=== PATIENT | male | born 1980 | race Two or more races ===

== ENCOUNTER 2022-01-26 16:43 | Emergency (ER) | payer MEDICAID, OTHER ==
[~2022-01-26] VITALS: Ht 180.3 cm; Wt 108.9 kg
[2022-01-26 17:15] VITALS: BP 152/99
[2022-01-26] MEDS ORDERED: IBUP800T27 PO (17:19)
[2022-01-26] MEDS ORDERED: PRED20TA2 PO (17:19)
== END 2022-01-26 17:32 | disposition home or self-care (01) ==
LOC: ER 16:43
DX: M54.32 Sciatica, left side (principal); M79.662 Pain in left lower leg
CPT/HCPCS: 93971

== ENCOUNTER 2022-10-25 08:57 | Inpatient (IN) | payer MEDICAID ==
[~2022-10-25] VITALS: Ht 185.4 cm; Wt 103.6 kg
[~2022-10-25 08:57] MED LIST: IBUP800T27 PO; PRED20TA2 PO
[2022-10-25] MEDS ORDERED: SODIUM CHLORIDE 0.9% 500 ML IV ONE (09:30)
[2022-10-25] MEDS ORDERED: SODIUM CHLORIDE 0.9% 1,000 ML IVB ONE (09:30)
[2022-10-25] MEDS ORDERED: SODIUM CHLORIDE 0.9% 1,000 ML IV ONE (09:30)
[2022-10-25] MEDS ORDERED: dilTIAZem 25 MG/5 ML VIAL IV ONE (09:30)
[2022-10-25 09:32] LABS: INR 0.92 (0.9-1.15); Partial Thromboplastin Time 26.1 sec (24.6-33.4)
[2022-10-25 09:45] LABS: Basophils # (auto) 0.1 10 ^3/uL (0-0.2); Eosinophils # (auto) 0 10 ^3/uL (0-0.8); Eosinophils % (auto) 0.3 % (0.0-7.0); Lymphocytes # (auto) 3.4 10 ^3/uL (0.4-5.4); Mean Corpuscular Hemoglobin 29.8 pg (28.0-32.0)
[2022-10-25 09:48] LABS: Basophils % (auto) 0.8 % (0.0-2.0); Hematocrit 51.4 % (41.0-53.0); Hemoglobin 17.9 g/dL (13.5-17.5); Lymphocytes % (auto) 29.5 % (10.0-50.0); Mean Corpuscular Hgb Conc. 34.9 g/dL (32.0-36.0); Mean Corpuscular Volume 85.5 fL (80.0-100.0); Monocytes # (auto) 0.6 10 ^3/uL (0-1.3); Monocytes % (auto) 5.6 % (0.0-12.0); Neutrophils # (auto) 7.4 10 ^3/uL (1.6-8.6); Neutrophils % (auto) 63.8 % (37.0-80.0); Red Blood Cells 6.01 10^6/uL (4.5-5.90); Red Cell Distribution Width 12.9 % (11.8-14.3); White Blood Cell 11.6 10^3/uL (4.4-10.8)
[2022-10-25 10:07] LABS: Nucleated Red Blood Cells % 0.1 %
[2022-10-25] MEDS ORDERED: ADENOSINE 6 MG/2 ML INJ IV ONE (10:30)
[2022-10-25] MEDS ORDERED: ACETAMINOPHEN 500 MG TAB PO ONE (10:30)
[2022-10-25 11:00] LABS: Urine Bacteria NONE SEEN /hpf (None Seen); Urine Blood Negative /uL (Negative); Urine WBC <1 /hpf (0 - 3)
[2022-10-25] MEDS ORDERED: AMIODARONE HCL 150 MG in D5W 5% 100 ML IV ONE (11:00)
[2022-10-25] MEDS ORDERED: AMIODARONE 450mg/250ml AE 250 ML IV SCH (11:15)
[2022-10-25 17:00] LABS: Anion Gap 12 (5-15); Carbon Dioxide 23 mmol/L (21-32); Chloride 97 mmol/L (98-107); Potassium 4.5 mmol/L (3.5-5.1); Sodium 132 mmol/L (136-145)
[2022-10-25 17:01] LABS: Alanine Aminotransferase 30 U/L (16-61); Albumin 4.2 g/dL (3.4-5.0); Alkaline Phosphatase 167 U/L (45-117); Aspartate Aminotransferase 6 U/L (15-37); BUN/Creatinine Ratio 16.4; Bilirubin, Total 0.8 mg/dL (0.2-1.0); Blood Urea Nitrogen 20 mg/dL (7-18); Calcium 9.6 mg/dL (8.5-10.1); GFR African American 84 mL/min; GFR Non-African American 69 mL/min; Total Protein 7.9 g/dL (6.4-8.2)
[2022-10-25 17:03] LABS: Glucose 584 mg/dL (74-106)
[2022-10-25] MEDS ORDERED: DEXTROSE (50%) 50ML SYRG IV PRN (17:15)
[2022-10-25] MEDS: dilTIAZem 125mg/125ml BAG KIT 100 ML IV SCH (17:35)
[2022-10-25] MEDS: AMIODARONE 450mg/250ml AE 250 ML IV SCH ×2 (17:35→21:08)
[2022-10-25] MEDS ORDERED: MORPHINE SULFATE INJ 2 MG/ml SYRG IV PRN (17:45)
[2022-10-25] MEDS ORDERED: NITROGLYCERIN 0.4 MG SL TAB SL PRN (17:45)
[2022-10-25] MEDS: ACCU-CHEK COMFORT CURVE STRIP VI SCH ×2 (18:00→22:31)
[2022-10-25] MEDS: InsuLIN REG 1unit/0.01ml Soln (100units/ml) SC SCH ×2 (18:00→22:32)
[2022-10-25 19:16] LABS: Alcohol, Urine < 3.0 mg/dL (0-10); Amphetamine Screen, Urine NEGATIVE (NEGATIVE); Barbiturate Scree,Urine NEGATIVE (NEGATIVE); Benzodiazephine Screen, Urine NEGATIVE (NEGATIVE); Cannabinoid Screen, Urine NEGATIVE (NEGATIVE); Cocaine Screen, Urine NEGATIVE (NEGATIVE); Opiate Scree,Urine NEGATIVE (NEGATIVE); Phencyclidine Screen, Urine NEGATIVE (NEGATIVE)
[2022-10-25] MEDS ORDERED: ACCU-CHEK COMFORT CURVE STRIP VI SCH (20:00)
[2022-10-25] MEDS ORDERED: InsuLIN REG 1unit/0.01ml Soln (100units/ml) SC SCH (20:00)
[2022-10-25] MEDS ORDERED: ATORVASTATIN 20 MG TAB PO SCH (22:00)
[2022-10-26] MEDS: dilTIAZem 125mg/125ml BAG KIT 100 ML IV SCH (05:20)
[2022-10-26 06:02] LABS: Basophils # (auto) 0.1 10 ^3/uL (0-0.2); Basophils % (auto) 0.5 % (0.0-2.0); Eosinophils # (auto) 0.1 10 ^3/uL (0-0.8); Eosinophils % (auto) 0.5 % (0.0-7.0); Hematocrit 43.4 % (41.0-53.0); Hemoglobin 15.7 g/dL (13.5-17.5); Lymphocytes # (auto) 2.8 10 ^3/uL (0.4-5.4); Lymphocytes % (auto) 27.4 % (10.0-50.0); Mean Corpuscular Hemoglobin 29.9 pg (28.0-32.0); Mean Corpuscular Hgb Conc. 36.1 g/dL (32.0-36.0); Monocytes # (auto) 0.6 10 ^3/uL (0-1.3); Monocytes % (auto) 5.4 % (0.0-12.0); Neutrophils # (auto) 6.8 10 ^3/uL (1.6-8.6); Neutrophils % (auto) 66.2 % (37.0-80.0); Red Blood Cells 5.23 10^6/uL (4.5-5.90); Red Cell Distribution Width 12.7 % (11.8-14.3); White Blood Cell 10.3 10^3/uL (4.4-10.8)
[2022-10-26 06:15] LABS: Albumin 3.4 g/dL (3.4-5.0); Calcium 8.1 mg/dL (8.5-10.1); Potassium 3.7 mmol/L (3.5-5.1)
[2022-10-26 06:19] LABS: BUN/Creatinine Ratio 31.3; Bilirubin, Total 0.8 mg/dL (0.2-1.0); Total Protein 6.5 g/dL (6.4-8.2)
[2022-10-26] MEDS: ACCU-CHEK COMFORT CURVE STRIP VI SCH ×3 (06:46→18:25)
[2022-10-26] MEDS: InsuLIN REG 1unit/0.01ml Soln (100units/ml) SC SCH ×3 (06:49→18:41)
[2022-10-26] MEDS ORDERED: DIGOXIN (250MCG/ML) 2 ML AMPULE IV ONE (09:30)
[2022-10-26] MEDS ORDERED: POTASSIUM CHL 20 Meq TABLET PO ONE (09:30)
[2022-10-26] MEDS ORDERED: dilTIAZem HCL 180MG ER CAP PO SCH (10:00)
[2022-10-26] MEDS: FUROSEMIDE 40 MG/4 ML VIAL IV SCH (10:00)
[2022-10-26] MEDS: LISINOPRIL 5 MG TAB PO SCH (10:00)
[2022-10-26] MEDS: ASPirin 81 mg TAB PO SCH (10:10)
[2022-10-26] MEDS: dilTIAZem HCL 180MG ER CAP PO SCH (10:12)
[2022-10-26] MEDS: ENOXAPARIN SOD 40 MG/0.4 ML SYRINGE SC SCH (10:15)
[2022-10-26] MEDS: AMIODARONE 450mg/250ml AE 250 ML IV SCH (13:30)
[2022-10-26] MEDS ORDERED: AMIODARONE HCL 200 MG TAB PO ONE (16:30)
[2022-10-26 19:34] VITALS: BP 118/74
[2022-10-26 20:00] VITALS: BP 124/79
[2022-10-26 22:00] VITALS: BP 120/63
[2022-10-27] VITALS (7 sets, daily range): BP systolic 108–126; BP diastolic 63–85
[2022-10-27] MEDS: AMIODARONE HCL 200 MG TAB PO SCH ×3 (00:29→21:56)
[2022-10-27] MEDS: ATORVASTATIN 20 MG TAB PO SCH ×2 (00:30→21:56)
[2022-10-27] MEDS: ACCU-CHEK COMFORT CURVE STRIP VI SCH ×5 (00:39→21:50)
[2022-10-27] MEDS: InsuLIN REG 1unit/0.01ml Soln (100units/ml) SC SCH ×5 (00:43→21:52)
[2022-10-27] MEDS: ACETAMINOPHEN 325 MG TAB PO PRN ×2 (00:46→21:55)
[2022-10-27] MEDS: dilTIAZem HCL 180MG ER CAP PO SCH (08:59)
[2022-10-27] MEDS: ASPirin 81 mg TAB PO SCH (08:59)
[2022-10-27] MEDS: FUROSEMIDE 40 MG/4 ML VIAL IV SCH (09:00)
[2022-10-27] MEDS: ENOXAPARIN SOD 40 MG/0.4 ML SYRINGE SC SCH (09:01)
[2022-10-27] MEDS: dilTIAZem 125mg/125ml BAG KIT 100 ML IV SCH (09:01)
[2022-10-27] MEDS: LISINOPRIL 5 MG TAB PO SCH (09:01)
[2022-10-27] MEDS ORDERED: INSULIN LANTUS (GLARGINE) 1 /0.01ml (100units/ml) SC SCH (22:00)
[2022-10-28 05:14] VITALS: BP 106/66
[2022-10-28] MEDS: ACCU-CHEK COMFORT CURVE STRIP VI SCH ×3 (06:55→17:21)
[2022-10-28] MEDS: InsuLIN REG 1unit/0.01ml Soln (100units/ml) SC SCH ×3 (06:56→17:34)
[2022-10-28 08:00] VITALS: BP 133/87
[2022-10-28] MEDS: ASPirin 81 mg TAB PO SCH (08:53)
[2022-10-28] MEDS: AMIODARONE HCL 200 MG TAB PO SCH (08:53)
[2022-10-28] MEDS: LISINOPRIL 5 MG TAB PO SCH (08:53)
[2022-10-28] MEDS: dilTIAZem HCL 180MG ER CAP PO SCH (08:54)
[2022-10-28] MEDS: ENOXAPARIN SOD 40 MG/0.4 ML SYRINGE SC SCH (08:55)
[2022-10-28] MEDS: FUROSEMIDE 40 MG/4 ML VIAL IV SCH (08:55)
[2022-10-28 09:18] VITALS: BP_SYST 133; BP_DIAS 73; BP_DIAS 87
[2022-10-28 12:55] VITALS: BP 114/76
[2022-10-28] MEDS ORDERED: INSLANTI SC (14:23)
[2022-10-28] MEDS ORDERED: INSU1MIS36 XX (14:23)
[2022-10-28] MEDS ORDERED: AMIO200T33 PO (14:23)
[2022-10-28] MEDS ORDERED: DILT-102 PO (14:23)
[2022-10-28] MEDS ORDERED: [UNRECOGNIZED DRUG - CODE] VI (14:23)
[2022-10-28] MEDS ORDERED: GLUC1TES63 VI (14:30)
[2022-10-28 15:54] VITALS: BP 133/87
[2022-10-28 17:03] VITALS: BP 144/81
== END 2022-10-28 17:42 | disposition home or self-care (01) | DRG 201 ==
LOC: ER 08:57 → TELE 17:50 → TELE-WESTW 10-26 19:03
PROVIDERS: ADMIT Nurse Practitioner Family; ATTEND Internal Medicine
DX: I48.91 Unspecified atrial fibrillation (principal); E11.00 Type 2 diabetes mellitus with hyperosmolarity without nonketotic hyperglycemic-hyperosmolar coma (NKHHC); I50.21 Acute systolic (congestive) heart failure; D72.829 Elevated white blood cell count, unspecified; E66.9 Obesity, unspecified; E78.5 Hyperlipidemia, unspecified; E03.9 Hypothyroidism, unspecified; Z20.822 Contact with and (suspected) exposure to COVID-19; Z79.4 Long term (current) use of insulin; Z68.30 Body mass index [BMI] 30.0-30.9, adult
CPT/HCPCS: 36415; 70450; 71045; 80053; 80061; 80307; 81001; 82010; 82962; 83036; 83735; 83880; 84100; 84443; 84484; 85025; 85379; 85610; 85730; 87426; 93005; 93306; 93971; 96361; 96365; 96375; 99291; G0378; J0153; J1815; J7060

== ENCOUNTER 2023-01-18 08:07 | Emergency (ER) | payer MEDICAID ==
[~2023-01-18] VITALS: Ht 180.3 cm; Wt 109.0 kg
[~2023-01-18 08:07] MED LIST changes: +AMIO200T33 PO; +DILT-102 PO; +GLUC1TES63 VI; +INSLANTI SC; +INSU1MIS36 XX; +[UNRECOGNIZED DRUG - CODE] VI
[2023-01-18 08:13] VITALS: BP 148/89
[2023-01-18 08:28] LABS: Basophils # (auto) 0.2 10 ^3/uL (0-0.2); Basophils % (auto) 2.6 % (0.0-2.0); Eosinophils # (auto) 0.2 10 ^3/uL (0-0.8); Eosinophils % (auto) 2.7 % (0.0-7.0); Hematocrit 45.2 % (41.0-53.0); Lymphocytes % (auto) 33.2 % (10.0-50.0); Mean Corpuscular Hemoglobin 30.5 pg (28.0-32.0); Mean Corpuscular Hgb Conc. 35.4 g/dL (32.0-36.0); Mean Corpuscular Volume 86.2 fL (80.0-100.0); Monocytes # (auto) 0.7 10 ^3/uL (0-1.3); Monocytes % (auto) 7.4 % (0.0-12.0); Neutrophils % (auto) 54.1 % (37.0-80.0); Nucleated Red Blood Cells % 0.2 %; Red Blood Cells 5.24 10^6/uL (4.5-5.90); Red Cell Distribution Width 12.9 % (11.8-14.3); White Blood Cell 9.2 10^3/uL (4.4-10.8)
[2023-01-18 08:44] LABS: Albumin 3.9 g/dL (3.4-5.0); Calcium 9.1 mg/dL (8.5-10.1); Potassium 4.3 mmol/L (3.5-5.1)
[2023-01-18 08:49] LABS: BUN/Creatinine Ratio 21.3 (10.0-20.0); Bilirubin, Total 0.8 mg/dL (0.2-1.0); Total Protein 7.7 g/dL (6.4-8.2)
== END 2023-01-18 13:42 | disposition left against medical advice (07) ==
LOC: ER 08:07
DX: R09.1 Pleurisy (principal); E11.9 Type 2 diabetes mellitus without complications; R06.02 Shortness of breath
CPT/HCPCS: 36415; 71045; 80053; 83880; 84484; 85025; 85379; 93005